=== PATIENT | male | born 1935 | race Caucasian/White ===

== ENCOUNTER → 2017-02-13 | Outpatient (CLI) | payer MEDICARE ==
[~2017-02-13] MED LIST: PROAIR HFA8.5 GM INH; Z.0.ADULT LOW DOSE81 PO; Z.0.LOVASTATIN40 MG PO; Z.1.HYDROCHLOROTH12. PO
--- NOTE | 2017-02-22 04:27 | Pulmonary Function Test ---
DATE OF STUDY: February 13, 2017 SPIROMETRY: Spirometry demonstrates evidence of very severe obstruction noting decreased FEV1 of 0.65 L, 21% predicted with decreased FVC of 1.8 L, 39% predicted in setting of decreased FEV1 over FVC ratio. Flow volume loop demonstrates scooped out expiratory limb and normal expiratory limb often seen in emphysema. Decreased FVC may signal concomitant restriction versus hyperinflation. SUMMARY: Very severe obstruction. Decreased FVC may signify concomitant restriction versus hyperinflation. Clinical correlation is recommended and lung volumes may be performed if clinically indicated. Job#: [id number] [facility]
== END ==
LOC: RESP 14:13
PROVIDERS: ATTEND Internal Medicine Critical Care Medicine
DX: J44.9 Chronic obstructive pulmonary disease, unspecified (principal); G47.36 Sleep related hypoventilation in conditions classified elsewhere; Z77.090 Contact with and (suspected) exposure to asbestos; Z87.891 Personal history of nicotine dependence
CPT/HCPCS: 94010

== ENCOUNTER 2017-03-15 16:38 | Inpatient (IN) | payer MEDICARE ==
[~2017-03-15] VITALS: Ht 182.9 cm; Wt 83.9 kg
[2017-03-15] MEDS ORDERED: MAGNESIUM SULFATE 2GM/50ML 50 ML IV STA (16:45)
[2017-03-15] MEDS ORDERED: IPRATROPIUM BROMIDE 0.02% 2.5 ML NEB NEB STA (16:45)
[2017-03-15] MEDS ORDERED: ASPIRIN 81 MG CHEW TAB PO ONE ×3 (16:45→19:30)
[2017-03-15] MEDS ORDERED: LEVALBUTEROL HCL SOLN NEBU 1.25 MG/3 ML NEB INH SCH (17:00)
[2017-03-15 17:01] LABS: BASOPHILS % 0.2 % (0.0-1.0); EOSINOPHILS % 0.1 % (0.0-6.0); LYMPHOCYTES # (AUTO) 2.1 (1.0-3.2); LYMPHOCYTES % 17.7 % (18.0-39.1); MEAN CORPUSCULAR HEMOGLOBIN 30.5 pg (28-32); MEAN CORPUSCULAR HGB CONC 33.3 g/dL (31-35); MEAN CORPUSCULAR VOLUME 91.5 fL (81-99); MONOCYTES # (AUTO) 0.9 (0.2-0.8); MONOCYTES % 7.8 % (4.4-11.3); NEUTROPHILS # (AUTO) 8.6 (2.1-6.9); NEUTROPHILS % 73.9 % (38.7-80.0); PLATELET COUNT 206 x10e3/uL (140-360); RED CELL DISTRIBUTION WIDTH 13.5 % (11.7-14.4)
[2017-03-15 17:04] LABS: INR 0.94
[2017-03-15 17:05] LABS: PARTIAL THROMBOPLASTIN TIME 24.2 seconds (23.8-35.5)
[2017-03-15 17:14] LABS: ALBUMIN 3.6 g/dL (3.5-5.0); ALBUMIN/GLOBULIN RATIO 0.8 (0.8-2.0); ANION GAP 16.3 mmol/L (8-16); CALCIUM 9.4 mg/dL (8.4-10.2); CREATININE, SERUM 1.18 mg/dL (0.72-1.25); POTASSIUM 4.3 mmol/L (3.5-5.1)
[2017-03-15] MEDS ORDERED: ALBUTEROL/IPRATROPIUM 3 ML NEB NEB ONE (17:15)
[2017-03-15] MEDS ORDERED: ALBUTEROL SULF 0.083% NEB SOLN 3 ML NEB NEB ONE (17:15)
[2017-03-15 17:21] LABS: CREATINE KINASE MB 3.4 ng/mL (0.00-5.00); TROPONIN I 0.014 ng/mL (0-0.300)
[2017-03-15 17:33] LABS: B-TYPE NATRIURETIC PEPTIDE2 77.2 pg/mL (0-100)
[2017-03-15 17:35] LABS: ABG PH 7.38 (7.31-7.41)
[2017-03-15] MEDS ORDERED: PIPERACILLIN/TAZO 4.5 GM 100 ML IV STA (18:02)
--- NOTE | 2017-03-15 18:02 | Diagnostic Imaging Report ---
PROCEDURE: A single AP view of the chest. COMPARISON: Patients [facility], , CHEST 2 VIEWS, 08/10/2016, 11:46. INDICATIONS: Not provided. FINDINGS: Lines/tubes: None. Lungs: Stable hyperinflated lungs, with increased lucency in the upper lobes, consistent with COPD changes. No consolidation or pulmonary edema. Pleura: Minimal blunting of the right lateral costophrenic sulcus, which may reflect pleural thickening versus small volume pleural effusion. Heart and mediastinum: Stable cardiac silhouette. Enlarged bilateral pulmonary arteries. Atherosclerotic calcification of the aortic arch. Bones: No acute bony abnormality. IMPRESSION: 1. COPD changes. No consolidation or pulmonary edema. 2. Enlarged bilateral pulmonary arteries. 3. Right costophrenic angle pleural thickening versus small pleural effusion. Severino Davis M.D. Dictated by: Severino Davis M.D. on 03/15/2017 at 18:10 Electronically approved by: Severino Davis M.D. on 03/15/2017 at 18:10
[2017-03-15] MEDS ORDERED: VANCOMYCIN 1GM/NS 250 ML 250 ML IV ONE (18:30)
[2017-03-15] MEDS ORDERED: METOPROLOL TART25 MG PO (18:40)
[2017-03-15] MEDS ORDERED: PREDNISONE5 MG PO (18:40)
[2017-03-15] MEDS ORDERED: LEVOFLOXACIN500 MG PO (18:40)
[2017-03-15] MEDS ORDERED: SODIUM CHLORIDE FLUSH 10 ML SYR INJ PRN (18:45)
[2017-03-15] MEDS ORDERED: SALMETEROL/FLUTICASONE 100/50 INH SCH (19:00)
[2017-03-15] MEDS: VANCOMYCIN 1GM/NS 250 ML 250 ML IV SCH (20:54)
[2017-03-15] MEDS: PIPERACILLIN/TAZO 4.5 GM 100 ML IV SCH (20:54)
[2017-03-15 21:59] LABS: BILIRUBIN,URINE NEGATIVE (NEGATIVE); CLARITY,URINE CLEAR (CLEAR); COLOR,URINE YELLOW (YELLOW); KETONES,URINE TRACE (NEGATIVE); LEUKOCYTE ESTERASE ,URINE NEGATIVE (NEGATIVE); NITRITE,URINE NEGATIVE (NEGATIVE); URINE UROBILINOGEN 0.2 mg/dL (0.2 - 1)
[2017-03-15 22:00] LABS: PROTEIN,URINE DIPSTICK 2+ (NEGATIVE)
[2017-03-15 22:06] LABS: MUCUS,URINE MODERATE (RARE); RBC,URINE 0-5 /HPF (0-5); WBC,URINE (MAN) 0-5 /HPF (0-5)
[2017-03-15] MEDS: LEVALBUTEROL HCL SOLN NEBU 1.25 MG/3 ML NEB INH PRN (22:50)
[2017-03-16] MEDS: PIPERACILLIN/TAZO 4.5 GM 100 ML IV SCH ×4 (00:38→18:25)
[2017-03-16 01:44] LABS: CREATINE KINASE MB 4.2 ng/mL (0.00-5.00); TROPONIN I 0.231 ng/mL (0-0.300)
[2017-03-16 05:38] LABS: BASOPHILS % 0.2 % (0.0-1.0); LYMPHOCYTES # (AUTO) 0.7 (1.0-3.2); LYMPHOCYTES % 11.3 % (18.0-39.1); MEAN CORPUSCULAR HGB CONC 33.3 g/dL (31-35); MEAN CORPUSCULAR VOLUME 90.1 fL (81-99); MONOCYTES # (AUTO) 0.4 (0.2-0.8); MONOCYTES % 5.9 % (4.4-11.3); NEUTROPHILS # (AUTO) 5.3 (2.1-6.9); NEUTROPHILS % 82.3 % (38.7-80.0); PLATELET COUNT 187 x10e3/uL (140-360); RED BLOOD COUNT 5.33 x10e6/uL (4.3-5.7); RED CELL DISTRIBUTION WIDTH 13.7 % (11.7-14.4)
[2017-03-16 05:59] LABS: ALANINE AMINOTRANSFERASE 44 IU/L (0-55); ALBUMIN/GLOBULIN RATIO 0.8 (0.8-2.0); ALKALINE PHOSPHATASE 56 IU/L (40-150); ANION GAP 13.8 mmol/L (8-16); BLOOD UREA NITROGEN 23 mg/dL (7-26); BUN/CREATININE RATIO 23 (6-25); CALCIUM 8.9 mg/dL (8.4-10.2); CARBON DIOXIDE 28 mmol/L (22-29); CHLORIDE 102 mmol/L (98-107); EST GLOMERULAR FILTRATION RATE > 60 ML/MIN (60-); GLUCOSE 177 mg/dL (74-118); POTASSIUM 4.8 mmol/L (3.5-5.1); SODIUM 139 mmol/L (136-145)
[2017-03-16] MEDS: VANCOMYCIN 1GM/NS 250 ML 250 ML IV SCH (07:00)
[2017-03-16] MEDS: FAMOTIDINE 20 MG TAB PO SCH ×2 (07:30→16:05)
[2017-03-16] MEDS: OSELTAMIVIR PHOSPHATE 75 MG CAP PO SCH ×2 (07:30→20:30)
[2017-03-16] MEDS: ENOXAPARIN SOD INJ 40 MG/0.4 ML SYR SC SCH (07:30)
[2017-03-16] MEDS: METHYLPREDNISOLONE SOD SUCC 40 MG/ML VIAL IV SCH ×2 (07:55→20:30)
[2017-03-16] MEDS: METOPROLOL TARTRATE 25 MG TAB PO SCH (08:33)
[2017-03-16] MEDS: ASPIRIN 81 MG ENTERIC COATED PO SCH (08:33)
[2017-03-16] MEDS: HYDROCHLOROTHIAZIDE 25 MG TAB PO SCH (08:34)
[2017-03-16] MEDS: BENZONATATE 100 MG CAP PO SCH ×3 (08:34→20:30)
[2017-03-16] MEDS: LORATADINE 10 MG TAB PO SCH (08:34)
--- NOTE | 2017-03-16 08:46 | History and Physical ---
PRIMARY CARE PHYSICIAN: Dr. Edgar Bautista. CHIEF COMPLAINT: Shortness of breath. HISTORY OF PRESENT ILLNESS: This is an 81-year-old man with a history of COPD, now developing worsening shortness of breath and cough. This has been ongoing for about a week. He went to his primary care doctor, stating that he had not been feeling well. His chest x-ray showed signs of pneumonia. He was started on Levaquin and prednisone. Now at home yesterday patient had worsening shortness of breath and cough, attempted to reach to get his inhaler but got so fatigued that he was unable to reach. Therefore, he was brought to the hospital by his . Here he was found to have positive flu, and he has been started on BiPAP support for respiratory failure. He is admitted for further evaluation and management. PAST MEDICAL HISTORY: COPD, hypertension, cigarette abuse, recent pneumonia, hyperlipidemia. PAST SURGICAL HISTORY: None. ALLERGIES: PER THE ELECTRONIC MEDICAL RECORDS. FAMILY HISTORY/SOCIAL HISTORY: Patient is . He has 3 children. No alcohol. He quit cigarettes 35 years ago. MEDICATIONS: Per the electronic medical records. Reviewed. REVIEW OF SYSTEMS: Denies any dizziness, chest pain. VITAL SIGNS: Have been reviewed. PHYSICAL EXAMINATION GENERAL APPEARANCE: A tired-appearing man resting in bed. HEENT: Anicteric. He has a BiPAP mask in place. CARDIOVASCULAR: Normal S1/S2. LUNGS: Markedly reduced breath sounds throughout. Diminished throughout all lung roger. No wheezing. ABDOMEN: Soft, nontender, nondistended. EXTREMITIES: No edema. SKIN: Dry. PSYCHIATRIC: Normal affect. LABS: Reviewed. ASSESSMENT AND PLAN: This is an 81-year-old man. 1. Acute exacerbation of chronic obstructive pulmonary disease/acute respiratory failure. BiPAP support on board. Patient is on IV Zosyn and IV vancomycin. He is also getting oseltamivir for the flu. Will discontinue Advair and put him on Solu-Medrol with nebs. Will also add loratadine, antihistamine and antitussive medications. 2. Acute kidney injury. Will monitor closely. This is mild. 3. Right pleural effusion which appears to be small. Will monitor. May need to be diuresed. 4. Hypertension. Restart home medication of metoprolol tartrate. 5. Positive flu. Will use Tamiflu for 5 days. 6. Prophylaxis. Lovenox and Pepcid. 7. Disposition. Pulmonary consultation. Add steroids and continue broad-spectrum antibiotics. Follow up cultures. Obtain sputum culture as well. Job#: [id number] EV
[2017-03-16 10:54] LABS: CREATINE KINASE MB 3.7 ng/mL (0.00-5.00); TROPONIN I 0.134 ng/mL (0-0.300)
[2017-03-16 10:55] VITALS: BP 155/90
[2017-03-16] MEDS ORDERED: SODIUM CHLORIDE 0.9% 250ML 250 ML ONE (11:24)
[2017-03-16 12:00] VITALS: BP_SYST 151; BP_SYST 156; BP_DIAS 93; BP_DIAS 94
[2017-03-16] MEDS ORDERED: Anoro Ellipta IH (14:17)
[2017-03-16] MEDS: IPRATROPIUM BROMIDE 0.02% 2.5 ML NEB NEB SCH ×3 (15:00→23:25)
[2017-03-16] MEDS: GUAIFENESIN 600MG/DEXTROMETHORPHAN 30MG TABSR PO SCH ×2 (15:00→23:28)
[2017-03-16 16:05] VITALS: BP 151/93
[2017-03-16 16:13] VITALS: BP 154/89
--- NOTE | 2017-03-16 17:00 | Consultation ---
DATE OF CONSULTATION: March 16, 2017 PULMONARY MEDICINE CONSULT PRIMARY CARE DOCTOR: Dr. Edgar Bautista HISTORY: Mr. Osman is a pleasant 81-year-old gentleman with acute respiratory failure. Patient with known COPD. He is chronically on medicines for his COPD, including Symbicort although we tried to change it to a different medicine recently, which is not approved. He performs pulmonary rehab. Was in his usual state of health until 1 week prior to admission. Patient with fever to 101 degrees Fahrenheit. Some increased congestion. Mild shortness of breath. Small cough although was not too excessive. Patient not clear to have any sick contacts, although in recent few days his son was very sick. He had worsening shortness of breath. He went to his primary care doctor where he was treated for pneumonia. Patient failed to improve so he came to [facility]. He was given BiPAP for rescue and was breathing very hard at 24. He is admitted to the hospital. Influenza flu assay was positive. PAST MEDICAL HISTORY: COPD, hypertension, hyperlipidemia. MEDICATIONS: List reviewed per electronic record. Currently, in the hospital he is on Zosyn, vancomycin, Tamiflu among other medicines. ALLERGIES: NO KNOWN DRUG ALLERGIES. SOCIAL HISTORY: No drinking. No drugs. Former smoker and he quit 35 years ago. Is . FAMILY HISTORY: Noncontributory to this condition. REVIEW OF SYSTEMS: Cannot get as he is on respiratory support device. PHYSICAL EXAMINATION VITALS: Afebrile. Vital signs noted per electronic record. GENERAL: No distress when he is on BiPAP with only mild tachypnea. HEENT: Normocephalic and atraumatic. NECK: Supple. Throat midline. LUNGS: Bilateral air entry. Few rare rhonchi. Few rare wheezes. CARDIOVASCULAR: S1 and S2. No murmurs, rubs or gallops. ABDOMEN: Soft and nontender. EXTREMITIES: No clubbing. No cyanosis. No edema. INTEGUMENT: No rash. No purpura. LABS: Potassium 4.8, BUN 22, creatinine 1. White count 6.5, hematocrit 48. Chest x-ray with basilar atelectasis versus infiltrate. IMPRESSION AND PLAN 1. Influenza, acute. 2. Treat for pneumonia. 3. Chronic obstructive pulmonary disease with exacerbation. 4. Acute respiratory failure: BiPAP salvage attempt. 5. Former smoker. 6. Hypertension. 7. Hyperlipidemia. At this time, will continue current treatment. Patient will have continued steroids. Continue BiPAP for salvage. Will try to avoid intubation. Bronchodilators will be given. Tamiflu will be given empirically, although he may be outside of the 48-hour window after symptoms onset. Continue other supportive treatment. Will follow along closely. Thank you very much, Dr. Kaiser and Dr. Bautista, for allowing me the chance to participate in the care of Mr. Osman. Do not hesitate to contact me if I can help in any way. Job#: [id number] SUN
[2017-03-16 17:19] VITALS: BP 154/89
[2017-03-16 20:00] VITALS: BP 158/95
[2017-03-16] MEDS: LEVALBUTEROL HCL SOLN NEBU 1.25 MG/3 ML NEB INH PRN (20:25)
[2017-03-16] MEDS: SIMVASTATIN 20 MG TAB PO SCH (20:30)
[2017-03-16] MEDS: VANCOMYCIN 750MG/NS 150ML IVPB 150 ML IV SCH (23:22)
[2017-03-17] VITALS (7 sets, daily range): BP systolic 121–168; BP diastolic 81–111
[2017-03-17] MEDS: PIPERACILLIN/TAZO 4.5 GM 100 ML IV SCH ×4 (00:11→18:43)
[2017-03-17] MEDS: IPRATROPIUM BROMIDE 0.02% 2.5 ML NEB NEB SCH ×6 (03:21→23:05)
[2017-03-17] MEDS: GUAIFENESIN 600MG/DEXTROMETHORPHAN 30MG TABSR PO SCH ×3 (05:17→21:30)
[2017-03-17] MEDS: OSELTAMIVIR PHOSPHATE 75 MG CAP PO SCH ×2 (08:18→20:30)
[2017-03-17] MEDS: ASPIRIN 81 MG ENTERIC COATED PO SCH (08:18)
[2017-03-17] MEDS: METHYLPREDNISOLONE SOD SUCC 40 MG/ML VIAL IV SCH ×2 (08:18→20:21)
[2017-03-17] MEDS: FAMOTIDINE 20 MG TAB PO SCH ×2 (08:18→16:23)
[2017-03-17] MEDS: BENZONATATE 100 MG CAP PO SCH ×3 (08:18→20:30)
[2017-03-17] MEDS: HYDROCHLOROTHIAZIDE 25 MG TAB PO SCH (08:18)
[2017-03-17] MEDS: METOPROLOL TARTRATE 25 MG TAB PO SCH (08:18)
[2017-03-17] MEDS: LORATADINE 10 MG TAB PO SCH (08:18)
--- NOTE | 2017-03-17 11:19 | Progress Note ---
DATE: March 17, 2017 MEDICINE PROGRESS NOTE TIME OF SERVICE: 10:30 a.m. SUBJECTIVE: Overnight, feeling a little better. REVIEW OF SYSTEMS: Denies any dizziness. VITAL SIGNS: Reviewed. PHYSICAL EXAMINATION GENERAL APPEARANCE: A tired-appearing man resting in bed. HEENT: Anicteric. A BiPAP mask to the side. CARDIOVASCULAR: Normal S1/S2. LUNGS: Markedly reduced breath sounds throughout, diminished throughout all lung roger. No wheezing. ABDOMEN: Soft, nontender, nondistended. EXTREMITIES: No edema. SKIN: Dry. PSYCHIATRIC: Normal affect. LABS: Reviewed. MEDICATIONS: Reviewed. ASSESSMENT: An 81-year-old man. 1. Acute exacerbation of chronic obstructive pulmonary disease/acute respiratory failure. 2. Acute kidney injury. 3. Right pleural effusion. 4. Hypertension. 5. Positive flu. PLAN 1. Continue BiPAP support at night. Continue oxygen nasal cannula by day. 2. Continue IV antibiotics of Zosyn and vancomycin, as well as Tamiflu. 3. Follow up renal function. 4. Monitor fluid status. 5. Blood pressure control. 6. Leukocytosis resolved. 7. Acute kidney injury is improving. 8. Continue antitussive medication, loratadine and methylprednisolone. 9. Continue Pepcid and Lovenox prophylactically. Job#: [id number] EV
[2017-03-17] MEDS: VANCOMYCIN 750MG/NS 150ML IVPB 150 ML IV SCH ×2 (11:32→23:50)
--- NOTE | 2017-03-17 14:57 | Progress Note ---
DATE: March 17, 2017 PULMONARY MEDICINE PROGRESS NOTE SUBJECTIVE: Mr. Osman was seen and examined at bedside. He has some small improvement. He has to go back on BiPAP last night, but we are able to wean him off as of this morning. As of yet, he has not gone back on the BiPAP today. Patient currently with 4 liters per minute by nasal cannula, 94% oxygen saturation. Blood pressure mildly high in 150s. Patient otherwise with small expectoration of phlegm. REVIEW OF SYSTEMS: No headache, no double vision. OBJECTIVE VITAL SIGNS: Afebrile. Vital signs noted per electronic record. GENERAL: No distress, but he is slightly with increased work of breathing, mildly pale. HEENT: Normocephalic, atraumatic. NECK: Supple. Throat midline. LUNGS: Bilateral air entry, few rhonchi. CARDIOVASCULAR: S1 and S2. No murmurs, rubs, or gallops. ABDOMEN: Soft and nontender. EXTREMITIES. No clubbing, no cyanosis, there is no edema. INTEGUMENT: No rash. No purpura. LABS: No new updates for today. IMPRESSION 1. Pneumonia. 2. Influenza, acute. 3. Chronic obstructive pulmonary disease with exacerbation. 4. Weakness. 5. Hypoxemia. PLAN: Continue to wean off oxygen. Stop mobilize him and I will order physical therapy. Wean of BiPAP completely if possible. Acute respiratory failure is hopefully improving. Continue bronchodilators and steroids. Continue Tamiflu and antibiotics. Job#: [id number] KYLIE
[2017-03-17] MEDS: ENOXAPARIN SOD INJ 40 MG/0.4 ML SYR SC SCH (16:23)
[2017-03-17] MEDS: LEVALBUTEROL HCL SOLN NEBU 1.25 MG/3 ML NEB INH PRN (19:30)
[2017-03-17] MEDS: METOPROLOL TARTRATE 50 MG TAB PO SCH (20:30)
[2017-03-17] MEDS: SIMVASTATIN 20 MG TAB PO SCH (20:30)
[2017-03-18] VITALS (8 sets, daily range): BP systolic 134–178; BP diastolic 78–103
[2017-03-18] MEDS: PIPERACILLIN/TAZO 4.5 GM 100 ML IV SCH ×4 (00:50→18:15)
[2017-03-18] MEDS: IPRATROPIUM BROMIDE 0.02% 2.5 ML NEB NEB SCH ×6 (03:20→23:15)
[2017-03-18] MEDS: GUAIFENESIN 600MG/DEXTROMETHORPHAN 30MG TABSR PO SCH ×3 (05:20→22:14)
[2017-03-18 06:21] LABS: BASOPHILS % 0.1 % (0.0-1.0); HEMATOCRIT 46.4 % (38.2-49.6); HEMOGLOBIN 15.6 g/dL (14.0-18.0); LYMPHOCYTES # (AUTO) 0.5 (1.0-3.2); LYMPHOCYTES % 4.2 % (18.0-39.1); MEAN CORPUSCULAR HEMOGLOBIN 29.9 pg (28-32); MEAN CORPUSCULAR HGB CONC 33.6 g/dL (31-35); MEAN CORPUSCULAR VOLUME 88.9 fL (81-99); MONOCYTES # (AUTO) 0.5 (0.2-0.8); MONOCYTES % 3.9 % (4.4-11.3); NEUTROPHILS # (AUTO) 10.9 (2.1-6.9); NEUTROPHILS % 91.4 % (38.7-80.0); PLATELET COUNT 198 x10e3/uL (140-360); RED BLOOD COUNT 5.22 x10e6/uL (4.3-5.7); RED CELL DISTRIBUTION WIDTH 13.3 % (11.7-14.4)
[2017-03-18 06:48] LABS: ANION GAP 11.2 mmol/L (8-16); BLOOD UREA NITROGEN 23 mg/dL (7-26); BUN/CREATININE RATIO 24 (6-25); CALCIUM 8.9 mg/dL (8.4-10.2); CARBON DIOXIDE 31 mmol/L (22-29); CHLORIDE 99 mmol/L (98-107); CREATININE, SERUM 0.95 mg/dL (0.72-1.25); EST GLOMERULAR FILTRATION RATE > 60 ML/MIN (60-); GLUCOSE 152 mg/dL (74-118); MAGNESIUM 1.9 MG/DL (1.3-2.1); POTASSIUM 4.2 mmol/L (3.5-5.1); SODIUM 137 mmol/L (136-145)
--- NOTE | 2017-03-18 07:03 | Diagnostic Imaging Report ---
EXAMINATION: CHEST SINGLE (PORTABLE) INDICATION: Pneumonia. COMPARISON: 03/15/2017 FINDINGS: TUBES and LINES: None. LUNGS: The lungs are hyperinflated. Bibasilar atelectasis There is no evidence of pneumonia or pulmonary edema. PLEURA: No pleural effusion or pneumothorax. HEART AND MEDIASTINUM: The cardiomediastinal silhouette is unremarkable. There are atherosclerotic calcifications within the aorta. BONES AND SOFT TISSUES: No acute osseous lesion. Soft tissues are unremarkable. UPPER ABDOMEN: No free air under the diaphragm. IMPRESSION: Changes related to COPD. No evidence of consolidation. Signed by: Dr. Jamir Beckman M.D. on 03/18/2017 6:59 AM
--- NOTE | 2017-03-18 07:38 | Progress Note ---
DATE: March 18, 2017 TIME: 6:40 a.m. OVERNIGHT: Less short of breath, but still have O2 desats in the 80s with ambulation. REVIEW OF SYSTEMS: Denies any chest pain. PHYSICAL EXAMINATION VITAL SIGNS: Reviewed. GENERAL: A tired-appearing man resting in bed. HEENT: Anicteric. CARDIOVASCULAR: Normal S1 and S2. LUNGS: Reduced breath sounds throughout. ABDOMEN: Soft, nontender and nondistended. EXTREMITIES: No edema. SKIN: Dry. PSYCHIATRIC: Normal affect. LABS: Reviewed. MEDICATIONS: Reviewed. ASSESSMENT: An 81-year-old man with: 1. Acute exacerbation of chronic obstructive pulmonary disease/respiratory failure. 2. Acute kidney injury. 3. Right pleural effusion. 4. Hypertension. 5. Positive flu. 6. Physical deconditioned. PLAN 1. Continue oxygen support. Still having some desats with ambulation. Will get physical therapy on board. 2. Continue IV antibiotics of vancomycin, Zosyn and Tamiflu. 3. Acute kidney injury has resolved. 4. Vancomycin trough 7.7. 5. Other cultures have remained negative. 6. Physical therapy for physical deconditioning. Job#: [id number] DE
[2017-03-18] MEDS: FAMOTIDINE 20 MG TAB PO SCH ×2 (09:30→17:00)
[2017-03-18] MEDS: METHYLPREDNISOLONE SOD SUCC 40 MG/ML VIAL IV SCH ×2 (09:30→22:13)
[2017-03-18] MEDS: LORATADINE 10 MG TAB PO SCH (09:30)
[2017-03-18] MEDS: OSELTAMIVIR PHOSPHATE 75 MG CAP PO SCH ×2 (09:30→22:14)
[2017-03-18] MEDS: ASPIRIN 81 MG ENTERIC COATED PO SCH (09:30)
[2017-03-18] MEDS: BENZONATATE 100 MG CAP PO SCH ×3 (09:30→22:14)
[2017-03-18] MEDS: HYDROCHLOROTHIAZIDE 25 MG TAB PO SCH (09:30)
[2017-03-18] MEDS: METOPROLOL TARTRATE 50 MG TAB PO SCH (09:30)
[2017-03-18] MEDS: VANCOMYCIN 750MG/NS 150ML IVPB 150 ML IV SCH ×2 (11:30→23:41)
[2017-03-18] MEDS ORDERED: SODIUM CHLORIDE 0.9% 250ML 250 ML ONE (12:50)
--- NOTE | 2017-03-18 14:43 | Progress Note ---
DATE: March 18, 2017 PULMONARY MEDICINE PROGRESS NOTE SUBJECTIVE: Mr. Osman was seen and examined at bedside. He continues to have a lot of dyspnea. He was able to walk to the restroom. He also walked across the room to the door. He, however, had a long time until he was able to recover from his shortness of breath. The patient had 4.5 L per minute of oxygen with 96% oxygen saturation. Blood cultures only 1 out of 2 are positive for now. Chest x-ray once again was done and shows slight improvement. REVIEW OF SYSTEMS: No nosebleed. No headache. OBJECTIVE VITAL SIGNS: Afebrile. Vital signs noted per electronic record. GENERAL: No acute distress, alert and calm, but there is increased work of breathing, mild to moderate. HEENT: Normocephalic, atraumatic. NECK: Supple. Throat midline. LUNGS: A few rhonchi, decreased air entry. CARDIOVASCULAR: S1 and S2. No murmurs, rubs, or gallops. ABDOMEN: Soft and nontender. EXTREMITIES. No clubbing. No cyanosis. There is no edema. INTEGUMENT: No rash. No purpura. LABS: BUN 23, 0.9 creatinine, 12 white count, 46 hematocrit. IMPRESSION 1. Chronic obstructive pulmonary disease with exacerbation. 2. Acute respiratory failure, improving slowly. 3. Weakness. 4. Acute pneumonia. PLAN: Continue IV antibiotics. Vancomycin trough done and acceptable. Continue aggressive PT and OT. Given instructions for therapy. Tamiflu continue and finish this course. Continue steroids IV given his extensive shortness of breath for now, but we will consider going to prednisone tomorrow. Job#: [id number]
[2017-03-18] MEDS ORDERED: METOPROLOL TARTRATE 50 MG TAB PO SCH (17:00)
[2017-03-18] MEDS: ENOXAPARIN SOD INJ 40 MG/0.4 ML SYR SC SCH (17:00)
[2017-03-18] MEDS ORDERED: METOPROLOL TARTRATE 50 MG TAB PO ONE (18:45)
[2017-03-18] MEDS ORDERED: HYDRALAZINE HCL 25 MG TAB PO SCH (21:00)
[2017-03-18] MEDS: SIMVASTATIN 20 MG TAB PO SCH (22:14)
[2017-03-19] VITALS (12 sets, daily range): BP systolic 121–178; BP diastolic 74–129
[2017-03-19] MEDS: PIPERACILLIN/TAZO 4.5 GM 100 ML IV SCH ×5 (01:14→23:14)
[2017-03-19] MEDS: IPRATROPIUM BROMIDE 0.02% 2.5 ML NEB NEB SCH ×5 (03:55→19:15)
[2017-03-19] MEDS: GUAIFENESIN 600MG/DEXTROMETHORPHAN 30MG TABSR PO SCH ×3 (05:22→21:47)
[2017-03-19] MEDS: METOPROLOL TARTRATE 50 MG TAB PO SCH ×2 (07:20→21:04)
[2017-03-19] MEDS: HYDROCHLOROTHIAZIDE 25 MG TAB PO SCH (07:20)
--- NOTE | 2017-03-19 08:32 | Progress Note ---
DATE: March 19, 2017 TIME: 6:30 a.m. OVERNIGHT: Less short of breath. REVIEW OF SYSTEMS: Denies any chest pain. VITAL SIGNS: Reviewed. PHYSICAL EXAMINATION GENERAL: A tired-appearing man resting in bed. HEENT: Anicteric. CARDIOVASCULAR: Normal S1 and S2. LUNGS: Decreased breath sounds throughout. ABDOMEN: Soft, nontender. EXTREMITIES: No edema. SKIN: Dry. PSYCHIATRIC: Flat affect. LABS: Reviewed. MEDICATIONS: Reviewed. ASSESSMENT: An 81-year-old man. 1. Acute exacerbation of chronic obstructive pulmonary disease/respiratory failure. 2. Acute kidney injury. 3. Right pleural effusion. 4. Hypertension. 5. Positive influenza. 6. Physical deconditioning. PLAN 1. Continue oxygen support. Obtain ambulatory O2 sat on room air. 2. Physical therapy. The patient is quite deconditioned. Will get skilled facility evaluation. 3. Continue IV antibiotics and Tamiflu. 4. Last vancomycin trough was 9.9 yesterday. 5. All other cultures have remained negative. 6. SNF evaluation. Job#: [id number]
[2017-03-19] MEDS: BENZONATATE 100 MG CAP PO SCH ×3 (09:00→21:00)
[2017-03-19] MEDS: LORATADINE 10 MG TAB PO SCH (09:00)
[2017-03-19] MEDS: OSELTAMIVIR PHOSPHATE 75 MG CAP PO SCH ×2 (09:00→21:04)
[2017-03-19] MEDS: ASPIRIN 81 MG ENTERIC COATED PO SCH (09:00)
[2017-03-19] MEDS ORDERED: NIFEDIPINE CR 30 MG TAB PO SCH (09:00)
[2017-03-19] MEDS: FAMOTIDINE 20 MG TAB PO SCH (09:00)
--- NOTE | 2017-03-19 13:39 | Progress Note ---
DATE: March 19, 2017 PULMONARY MEDICINE PROGRESS NOTE SUBJECTIVE: Mr. Osman was seen and examined at bedside. He continues to have some shortness of breath. Blood pressure has been concerning to him as it is a little bit high sometimes to 160s to 170s at times. The patient did not get therapy yet as it was deferred due to the patient's symptoms. Had 1.6 L in, 1.1 L out. Bowel movement achieved. REVIEW OF SYSTEMS: No nosebleed. No scratch line. OBJECTIVE VITAL SIGNS: Afebrile. Vital signs noted per electronic record. GENERAL: No acute distress, but mild increased work of breathing, even sitting at rest. HEENT: Normocephalic, atraumatic. NECK: Supple. Throat midline. LUNGS: Bilateral air entry, a few rhonchi. CARDIOVASCULAR: S1 and S2. No murmurs, rubs, or gallops. ABDOMEN: Soft and nontender. EXTREMITIES. No clubbing. No cyanosis. There is no edema. INTEGUMENT: No rash. No purpura. IMPRESSION 1. Acute influenza. 2. Pneumonia. 3. Chronic obstructive pulmonary disease with exacerbation. 4. Hypertension. PLAN: Continue to follow up. We will wean down the steroids slightly. Continue bronchodilators. PT is very important. This was reinforced to him. He needs to recover quickly so that he does not lose his energy. Cardiac status noted, and medicines are being increased. Will follow along closely. Job#: [id number]
[2017-03-19] MEDS ORDERED: HYDRALAZINE HCL 25 MG TAB PO SCH (14:00)
[2017-03-19] MEDS ORDERED: DIPHENHYDRAMINE HCL INJ 1 ML ONE (15:55)
[2017-03-19] MEDS ORDERED: SODIUM CHLORIDE 0.9% 1000ML 1,000 ML ONE (15:55)
[2017-03-19] MEDS ORDERED: METHYLPREDNISOLONE SOD SUCC 40 MG/ML VIAL IV ONE (16:00)
[2017-03-19] MEDS ORDERED: DIPHENHYDRAMINE HCL INJ 50 MG/ML VIAL IV ONE (16:00)
[2017-03-19] MEDS: FAMOTIDINE 20 MG/2 ML VIAL IV SCH (17:11)
[2017-03-19] MEDS: ENOXAPARIN SOD INJ 40 MG/0.4 ML SYR SC SCH (17:37)
[2017-03-19] MEDS ORDERED: METHYLPREDNISOLONE SOD SUCC 40 MG/ML VIAL IV SCH (21:00)
[2017-03-19] MEDS: SIMVASTATIN 20 MG TAB PO SCH (21:05)
[2017-03-19] MEDS: METRONIDAZOLE 250 MG TAB PO SCH (21:47)
[2017-03-20] VITALS (10 sets, daily range): BP systolic 114–170; BP diastolic 64–101
[2017-03-20] MEDS: IPRATROPIUM BROMIDE 0.02% 2.5 ML NEB NEB SCH ×7 (00:15→20:30)
[2017-03-20] MEDS: METRONIDAZOLE 250 MG TAB PO SCH ×3 (05:21→21:26)
[2017-03-20] MEDS: PIPERACILLIN/TAZO 4.5 GM 100 ML IV SCH ×3 (05:21→18:39)
[2017-03-20] MEDS: GUAIFENESIN 600MG/DEXTROMETHORPHAN 30MG TABSR PO SCH ×3 (05:21→21:26)
[2017-03-20 06:50] LABS: BASOPHILS % 0.2 % (0.0-1.0); HEMATOCRIT 50.1 % (38.2-49.6); HEMOGLOBIN 17.1 g/dL (14.0-18.0); LYMPHOCYTES # (AUTO) 0.5 (1.0-3.2); LYMPHOCYTES % 5.6 % (18.0-39.1); MEAN CORPUSCULAR HEMOGLOBIN 30.2 pg (28-32); MEAN CORPUSCULAR HGB CONC 34.1 g/dL (31-35); MEAN CORPUSCULAR VOLUME 88.5 fL (81-99); MONOCYTES # (AUTO) 0.7 (0.2-0.8); MONOCYTES % 7.5 % (4.4-11.3); NEUTROPHILS % 85.7 % (38.7-80.0); PLATELET COUNT 215 x10e3/uL (140-360); RED BLOOD COUNT 5.66 x10e6/uL (4.3-5.7); RED CELL DISTRIBUTION WIDTH 13.2 % (11.7-14.4)
[2017-03-20] MEDS: FAMOTIDINE 20 MG/2 ML VIAL IV SCH ×2 (08:30→16:40)
[2017-03-20] MEDS: ASPIRIN 81 MG ENTERIC COATED PO SCH (08:30)
[2017-03-20] MEDS: BENZONATATE 100 MG CAP PO SCH ×4 (08:31→21:00)
[2017-03-20] MEDS: OSELTAMIVIR PHOSPHATE 75 MG CAP PO SCH ×2 (08:31→21:25)
[2017-03-20] MEDS: METOPROLOL TARTRATE 50 MG TAB PO SCH ×2 (08:32→21:25)
[2017-03-20] MEDS: HYDROCHLOROTHIAZIDE 25 MG TAB PO SCH (08:33)
[2017-03-20] MEDS: LORATADINE 10 MG TAB PO SCH (08:33)
[2017-03-20] MEDS: METHYLPREDNISOLONE SOD SUCC 40 MG/ML VIAL IV SCH ×2 (08:33→21:25)
[2017-03-20] MEDS: FLUCONAZOLE 100 MG/NS 50 ML 50 ML IV SCH (08:45)
--- NOTE | 2017-03-20 08:56 | Progress Note ---
DATE: March 20, 2017 TIME: 6:30 a.m. OVERNIGHT: Less short of breath. Ambulated yesterday. He had an allergic reaction yesterday and resolved with steroids and Pepcid. REVIEW OF SYSTEMS: Denies any dizziness or chest pain. PHYSICAL EXAMINATION VITAL SIGNS: Reviewed. GENERAL: A tired-appearing man resting in bed. HEENT: Anicteric. CARDIOVASCULAR: Normal S1 and S2. LUNGS: Moderate breath sounds reduced breath sounds throughout, but better aeration. ABDOMEN: Soft, nontender and nondistended. EXTREMITIES: No edema. SKIN: Dry. PSYCHIATRIC: Flat affect. LABS: Reviewed. MEDICATIONS: Reviewed. ASSESSMENT: An 81-year-old man with: 1. Acute exacerbation of chronic obstructive pulmonary disease/respiratory failure. 2. Acute kidney injury. 3. Right pleural effusion. 4. Hypertension. 5. Positive influenza. 6. Physical deconditioning. 7. Allergic type reaction/anaphylactic like reaction. 8. Diarrhea. PLAN 1. Continue oxygen support. 2. Continue physical therapy. 3. Continue antibiotics. 4. SNF evaluation is still ongoing. 5. Cardiology has been consulted. Blood pressure control. 6. Continue Flagyl and follow up stool for C. diff. 7. Continue Lovenox and Pepcid. 8. Complete steroid therapy. 9. Discharge planning. Job#: [id number] SUN
[2017-03-20] MEDS ORDERED: PREDNISONE 20 MG TAB PO SCH (09:00)
[2017-03-20] MEDS ORDERED: ALPRAZOLAM 0.5 MG TAB PO SCH (09:00)
[2017-03-20] MEDS: AMLODIPINE BESYLATE 5 MG TAB PO SCH (10:12)
--- NOTE | 2017-03-20 11:44 | Consultation ---
DATE OF CONSULTATION: March 19, 2017 REASON FOR CONSULTATION: High blood pressure and some bigemini. CONSULTING PHYSICIAN: Dr. Job Thomason. HPI: This is an 82-year-old male that presented with worsening of shortness of breath. According to the patient and at the bedside, he has a history of COPD, started developing worsening of shortness of breath. He was seen by the PCP and was found to have pneumonia and started on some antibiotic and some steroids. They stated that the shortness of breath got worse, that he decided to come into the ER for evaluation. In the emergency room, he was found to have flu positive and was admitted for further evaluation. He denies any chest pain, any palpitation, any dizziness or diaphoresis. EKG showed normal sinus rhythm with some PACs. PAST MEDICAL HISTORY: COPD, hypertension, cigarette abuse, pneumonia, and hyperlipidemia. PAST SURGICAL HISTORY: No surgical surgery. FAMILY HISTORY: Noncontributory. SOCIAL HISTORY: Lives at home with . MEDICATIONS: See med list. ALLERGIES: HE IS NOT ALLERGIC TO ANY MEDICATION. REVIEW OF SYSTEMS: Negative except those mentioned above. PHYSICAL EXAMINATION VITAL SIGNS: Temperature 97, heart rate 79, blood pressure 170/86, respirations 18, oxygen saturation 99% on 2 liters nasal cannula. GENERAL: He is in no distress. HEENT: Mucous membrane moist. NECK: Supple. LUNGS: Bilateral with decreased breath sounds. CARDIOVASCULAR: S1, S2 present. ABDOMEN: Soft. EXTREMITIES: With no edema. NEUROLOGIC: Intact. LABORATORY DATA: Sodium 137, potassium 4.2, chloride 99, CO2 of 31, BUN 23, creatinine 0.95, glucose 152. White blood cell 9.35, hemoglobin 17.1, hematocrit 50.1, platelet 215. PT 13.0, PTT 24.2, and INR 0.94. IMPRESSION 1. Chronic obstructive pulmonary disease exacerbation. 2. Pneumonia. 3. Flu positive. 4. Hypertension. 5. Pleural effusion. 6. Premature atrial contraction. ASSESSMENT AND PLAN: He had an echo done with preliminarily showing 50% to 55%. Blood pressure is still on the higher side. We will go ahead and add some Norvasc and continue other treatment. EKG with some PACs and not symptomatic. Further cardiac workup pending clinical course. Thank you for this consultation. Dictated by: Bart Nance NP Job#: [id number] PAT
[2017-03-20] MEDS ORDERED: SODIUM CHLORIDE 0.9% 250ML 250 ML ONE (12:31)
--- NOTE | 2017-03-20 12:43 | Progress Note ---
DATE: March 20, 2017 PULMONARY MEDICINE PROGRESS NOTE SUBJECTIVE: Mr. Osman was seen and examined at bedside. He continues to have slow progress. He is still very short of breath. He is determined that he does not want to go to shelter facility after discharge. Currently on 5 L per minute of oxygen therapy. Had 1.6 L in and 1.1 L out. He had a bowel movement. REVIEW OF SYSTEMS: No headache. No nosebleed. OBJECTIVE VITAL SIGNS: Afebrile. Vital signs noted per electronic record. GENERAL: No acute distress, alert and calm. HEENT: Normocephalic, atraumatic. No thrush in the mouth. NECK: Supple. Throat midline. LUNGS: Bilateral air entry is much decreased. No wheezes. Rare rhonchi. CARDIOVASCULAR: S1 and S2. No murmurs, rubs, or gallops. ABDOMEN: Soft and nontender. EXTREMITIES. No clubbing. No cyanosis. There is no edema. INTEGUMENT: No rash. No purpura. LABS: 9.3 white count, 15 hematocrit, 215 platelets, 23 BUN, 0.95 creatinine. IMPRESSION 1. Severe influenza. 2. Chronic obstructive pulmonary disease with exacerbation. 3. Pneumonia, improving. 4. Weakness. PLAN: Continue aggressive PT as much as possible. The patient is going to defer shelter and will want home physical therapy until he restarts pulmonary rehab. Continue to mobilize the patient. Continue weaning oxygen. Home oxygen assessment in case the patient goes home soon. Continue antibiotics. Will follow along closely. Okay for Tamiflu to come off at any point now. Job#: [id number]
[2017-03-20] MEDS: ALPRAZOLAM 0.25 MG TAB PO SCH ×2 (15:04→21:00)
[2017-03-20] MEDS: ENOXAPARIN SOD INJ 40 MG/0.4 ML SYR SC SCH (16:40)
[2017-03-20] MEDS: SIMVASTATIN 20 MG TAB PO SCH (21:26)
[2017-03-21] MEDS: PIPERACILLIN/TAZO 4.5 GM 100 ML IV SCH ×3 (01:36→12:12)
[2017-03-21] MEDS: IPRATROPIUM BROMIDE 0.02% 2.5 ML NEB NEB SCH ×3 (02:15→10:37)
[2017-03-21 05:45] VITALS: BP_SYST 116; BP_SYST 118; BP_DIAS 67; BP_DIAS 88
[2017-03-21] MEDS ORDERED: VIBRAMYCIN100 MG PO (06:39)
[2017-03-21] MEDS ORDERED: ALPRAZOLAM0.25 MG PO (06:39)
[2017-03-21] MEDS ORDERED: TESSALON PERLE100 MG PO (06:39)
[2017-03-21] MEDS ORDERED: MUCINEX DM ER1 EACH PO (06:39)
[2017-03-21] MEDS ORDERED: PREDNISONE20 MG PO (06:39)
[2017-03-21] MEDS ORDERED: LORATADINE10 MG PO (06:39)
[2017-03-21] MEDS ORDERED: FLUCONAZOLE100 MG PO (06:39)
[2017-03-21] MEDS: GUAIFENESIN 600MG/DEXTROMETHORPHAN 30MG TABSR PO SCH ×2 (07:06→13:09)
[2017-03-21] MEDS: METRONIDAZOLE 250 MG TAB PO SCH ×2 (07:06→13:09)
[2017-03-21 07:30] VITALS: BP 141/94
[2017-03-21] MEDS ORDERED: NORVASC5 MG PO (07:35)
[2017-03-21] MEDS: FLUCONAZOLE 100 MG/NS 50 ML 50 ML IV SCH (08:25)
[2017-03-21] MEDS: BENZONATATE 100 MG CAP PO SCH (09:00)
[2017-03-21] MEDS: ALPRAZOLAM 0.25 MG TAB PO SCH (09:00)
[2017-03-21] MEDS: LORATADINE 10 MG TAB PO SCH (09:14)
[2017-03-21] MEDS: ASPIRIN 81 MG ENTERIC COATED PO SCH (09:14)
[2017-03-21] MEDS: METHYLPREDNISOLONE SOD SUCC 40 MG/ML VIAL IV SCH (09:14)
[2017-03-21] MEDS: AMLODIPINE BESYLATE 5 MG TAB PO SCH (09:15)
[2017-03-21] MEDS: HYDROCHLOROTHIAZIDE 25 MG TAB PO SCH (09:15)
[2017-03-21] MEDS: OSELTAMIVIR PHOSPHATE 75 MG CAP PO SCH (09:17)
[2017-03-21] MEDS: METOPROLOL TARTRATE 50 MG TAB PO SCH (09:17)
[2017-03-21] MEDS: FAMOTIDINE 20 MG/2 ML VIAL IV SCH (09:27)
[2017-03-21 10:30] VITALS: BP 141/94
[2017-03-21 12:00] VITALS: BP 160/94
--- NOTE | 2017-03-21 13:20 | Progress Note ---
DATE: March 21, 2017 PULMONARY MEDICINE PROGRESS NOTE SUBJECTIVE: Mr. Osman was seen and examined at bedside. He continues with slight improvement. He gets hypoxic on mobilization. Oxygen has been weaned down to 2 L today. He is eating better. He is recovering more easily upon walking. REVIEW OF SYSTEMS: No chest pain. No headache. OBJECTIVE VITAL SIGNS: Afebrile. Vital signs noted per electronic record. GENERAL: No acute distress, alert. Mild increased work of breathing at rest. HEENT: Normocephalic, atraumatic. NECK: Supple. Throat midline. LUNGS: Bilateral air entry. CARDIOVASCULAR: S1 and S2. ABDOMEN: Soft. EXTREMITIES. No edema. INTEGUMENT: No rash. IMPRESSION 1. Acute influenza. 2. Chronic obstructive pulmonary disease with exacerbation. 3. Weakness. 4. Pneumonia. PLAN: Continue antibiotics. The patient will get home oxygen evaluation. Will make sure the patient has daytime oxygen with portability. The patient already has oxygen tank and oxygen concentrator for homebound capacity. Patient is deferring SNF at this time, and the patient likely will want to go home. Discharge planning is being done. Arrange for inhalers for the patient to try to acquire and see what his insurance wants. Job#: [id number]
[2017-03-21 13:58] VITALS: BP 141/87
[2017-03-21] MEDS ORDERED: FAMOTIDINE 20 MG TAB PO SCH (16:30)
[2017-03-21] MEDS ORDERED: PIPERACILLIN/TAZO 4.5 GM 50 ML IV SCH (18:00)
== END 2017-03-21 14:29 | disposition home health service (06) | DRG 193 ==
LOC: ER 16:38 → ERHOLD 18:31 → IMCU 03-16 10:15
PROVIDERS: ADMIT Internal Medicine; ATTEND Internal Medicine
PROC: 5A09357 Assistance with Respiratory Ventilation, Less than 24 Consecutive Hours, Continuous Positive Airway Pressure (ICD-10-PCS; principal; 2017-03-16)
DX: J18.9 Pneumonia, unspecified organism (principal); J96.01 Acute respiratory failure with hypoxia; N17.9 Acute kidney failure, unspecified; J90 Pleural effusion, not elsewhere classified; J44.0 Chronic obstructive pulmonary disease with (acute) lower respiratory infection; J44.1 Chronic obstructive pulmonary disease with (acute) exacerbation; J10.1 Influenza due to other identified influenza virus with other respiratory manifestations; Z87.891 Personal history of nicotine dependence; I49.1 Atrial premature depolarization; E78.5 Hyperlipidemia, unspecified; R73.9 Hyperglycemia, unspecified; Z99.81 Dependence on supplemental oxygen; Z79.82 Long term (current) use of aspirin
CPT/HCPCS: 36415; 36600; 71010; 80048; 80053; 80202; 81001; 82550; 82553; 82805; 83605; 83735; 83880; 84484; 85025; 85610; 85730; 87040; 87070; 87071; 87086; 87205; 87400; 87493; 93005; 93306; 94640; 94660; 96367; 96376; 97139; 99284; J1200; J1450; J1650; J2543; J2920; J3370; J7030; J7050

== ENCOUNTER → 2018-10-16 | Day surgery (SDC) | payer MEDICARE ==
[2018-10-14 16:26] LABS: BASOPHILS % 0.3 % (0.0-1.0); EOSINOPHILS # (AUTO) 0.2 (0.0-0.4); EOSINOPHILS % 2.5 % (0.0-6.0); HEMATOCRIT 47.4 % (38.2-49.6); HEMOGLOBIN 15.8 g/dL (14.0-18.0); LYMPHOCYTES # (AUTO) 1.7 (1.0-3.2); LYMPHOCYTES % 22.9 % (18.0-39.1); MEAN CORPUSCULAR HEMOGLOBIN 30.4 pg (28-32); MEAN CORPUSCULAR HGB CONC 33.3 g/dL (31-35); MEAN CORPUSCULAR VOLUME 91.3 fL (81-99); MONOCYTES # (AUTO) 0.9 (0.2-0.8); MONOCYTES % 11.6 % (4.4-11.3); NEUTROPHILS # (AUTO) 4.6 (2.1-6.9); NEUTROPHILS % 62.3 % (38.7-80.0); PLATELET COUNT 190 x10e3/uL (140-360); RED BLOOD COUNT 5.19 x10e6/uL (4.3-5.7)
--- NOTE | 2018-10-14 16:43 | Diagnostic Imaging Report ---
Chest, 2 views, 10/14/2018. History: Preop, endoscopy. Comparison: 03/18/2017. Findings: The cardiomediastinal silhouette and pulmonary vasculature are within normal limits. There is minimal biapical pleural thickening. The lungs are hyperinflated. Linear scarring is present in the upper lobe. The lungs are otherwise clear without evidence of consolidation or pleural effusion. Degenerative changes are noted in the thoracic spine. There are no acute osseous or soft tissue abnormalities. Impression: No acute cardiopulmonary abnormality. Emphysematous disease is noted. Signed by: Leobardo Wade on 10/14/2018 4:39 PM
[~2018-10-16] MED LIST changes: +ALPRAZOLAM0.25 MG PO; +Anoro Ellipta IH; +FLUCONAZOLE100 MG PO; +LEVOFLOXACIN500 MG PO; +LORATADINE10 MG PO; +METOPROLOL TART25 MG PO; +MUCINEX DM ER1 EACH PO; +NORVASC5 MG PO; +PREDNISONE20 MG PO; +PREDNISONE5 MG PO; +PROPOFOL IV EMULSION 10 MG/ML 20 ML VIAL ONE; +TESSALON PERLE100 MG PO; +VIBRAMYCIN100 MG PO
--- OUTSIDE RECORDS SUMMARY | 2018-10-16 08:59 | XMS REPORT ---
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 Allergies, Adverse Reactions, Alerts This patient has no known allergies or adverse reactions. Medications This patient has no known medications. Results Test Description Test Time Test Comments Text Results Atomic Results Result Comments CHEST 2 VIEWS 2018-10-14 16:38:00 [place] [address] Patient Name: VALERIE LOREDO MR #: [id number] : 1935 Age/Sex: 82/M Req #: [id number] Adm Physician: Ordered by: OCTAVIO HAGEN MD Report #: [id number] Location: OR Room/Bed: Procedure: [id number] DX/CHEST 2 VIEWS Exam Date: 10/14/18 Exam Time: 1555 REPORT STATUS: Signed Chest, 2 views, 10/14/2018. History: Preop, endoscopy. Comparison: 03/18/2017. Findings: The cardiomediastinal silhouette and pulmonary vasculature are within normal limits. There is minimal biapical pleural thickening. The lungs are hyperinflated. Linear scarring is present in the upper lobe. The lungs are otherwise clear without evidence of consolidation or pleural effusion. Degenerative changes are noted in the thoracic spine. There are no acute osseous or soft tissue abnormalities. Impression: No acute cardiopulmonary abnormality. Emphysematous disease is noted. Signed by: Leobardo Wade on 10/14/2018 4:39 PM Dictated By: LEOBARDO WADE MD 38 Transcribed By: AGNIESZKA on 10/14/181638 COPY TO: OCTAVIO HAGEN MD CHEST SINGLE (PORTABLE) [place] [address] Patient Name: VALERIE LOREDO MR #: [id number] : 1935 Age/Sex: 81/M Req #: [id number] Adm Physician: IVIS ADAME MD Ordered by: RUFUS WARREN MD Report #: [id number] Location: [facility] Room/Bed: [place] [address] Procedure: [id number] DX/CHEST SINGLE (PORTABLE) Exam Date: 03/18/17 Exam Time: 0555 REPORT STATUS: Signed EXAMINATION: CHEST SINGLE (PORTABLE) INDICATION: Pneumonia. COMPARISON: 03/15/2017 FINDINGS: TUBES and LINES: None. LUNGS: The lungs are hyperinflated. Bibasilar atelectasis There is no evidence of pneumonia or pulmonary edema. PLEURA: No pleural effusion or pneumothorax. HEART AND MEDIASTINUM: The cardiomediastinal silhouette is unremarkable. There are atherosclerotic calcifications within the aorta. BONES AND SOFT TISSUES: No acute osseous lesion. Soft tissues are unremarkable. UPPER ABDOMEN: No free air under the diaphragm. IMPRESSION: Changes related to COPD. No evidence of consolidation. Signed by: Dr. Jamir Beckman M.D. on 03/18/2017 6:59 AM Dictated By: JAMIR CASTILLO MD 8 Transcribed By: AGNIESZKA on 03/18/17658 COPY TO: RUFUS WARREN MD CHEST SINGLE (PORTABLE) [place] [address] Patient Name: VALERIE LOREDO MR #: [id number] : 1935 Age/Sex: 81/M Req #: [id number] Adm Physician: Ordered by: SEAN GALLEGOS MD Report #: [id number] Location: ER Room/Bed: Procedure: [id number] DX/CHEST SINGLE (PORTABLE) Exam Date: 03/15/17 Exam Time: 1700 REPORT STATUS: Signed PROCEDURE: A single AP view of the chest. COMPARISON: [facility], DX, CHEST 2 VIEWS, 08/10/2016, 11:46. INDICATIONS: Not provided. FINDINGS: Lines/tubes: None. Lungs: Stable hyperinflated lungs, with increased lucency in the upper lobes, consistent with COPD changes. No consolidation or pulmonary edema. Pleura: Minimal blunting of the right lateral costophrenic sulcus, which may reflect pleural thickening versus small volume pleural effusion. Heart and mediastinum: Stable cardiac silhouette. Enlarged bilateral pulmonary arteries. Atherosclerotic calcification of the aortic arch. Bones: No acute bony abnormality. IMPRESSION: 1. COPD changes. No consolidation or pulmonary edema. 2. Enlarged bilateral pulmonary arteries. 3. Right costoph renic angle pleural thickening versus small pleural effusion. Michael Davis M.D. Dictated by: Michael Davis M.D. on 03/15/2017 at 18:10 Electronically approved by: Michael Davis M.D. on 03/15/2017 at 18:10 Dictated By: MICHAEL DAVIS MD 09 Transcribed By: ANTHONY on 03/15/171809 COPY TO: SEAN GALLEGOS MD
--- OUTSIDE RECORDS SUMMARY | 2018-10-16 08:59 | XMS REPORT | Continuity of Care Document ---
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 Name Role Phone [facility] Unavailable Unavailable Problems Problem Status Onset Date Classification Date Reported Comments Source M25.512 - PAIN IN LEFT SHOULDER Active 06/03/2018 [facility] [place] Medications No Data Provided for This Section Allergies, Adverse Reactions, Alerts No Known Medication Allergies Immunizations No Data Provided for This Section Results No Data Provided for This Section Pathology Reports No Data Provided for This Section Diagnostic Reports Report Value Date Source Shoulder series DX Exam: Left shoulder x-ray, 3 views Reason for Exam: - M25.512 Pain in left shoulder Comparison Exam: None Discussion: No acute bony abnormality seen of the left shoulder. The glenohumeral joint is intact. The acromioclavicular joint and visualized portions of the scapula are unremarkable. No suspicious osteoblastic or osteolytic lesions. The visualized portions of the left rib cage and left lung are unremarkable. Impression: 1. Unremarkable left shoulder xray 06/03/2018 [facility] [place] Consultation Notes No Data Provided for This Section Discharge Summaries No Data Provided for This Section History and Physicals No Data Provided for This Section Vital Signs No Data Provided for This Section Encounters Location Location Details Encounter Type Encounter Number Reason For Visit Attending Provider ADM Date DC Date Status Source [facility] [place] [facility] Di[facility] [id number] Bisi Tavares 06/03/2018 06/04/2018 [facility] [place] Procedures No Data Provided for This Section Assessment and Plan No Data Provided for This Section Plan of Care No Data Provided for This Section Social History Social History Date Source No data available for this section 06/04/2018 [facility] [place] Family History No Data Provided for This Section Advance Directives No Data Provided for This Section Functional Status No Data Provided for This Section
--- OUTSIDE RECORDS SUMMARY | 2018-10-16 08:59 | XMS REPORT | Summary of Care ---
Author Author [facility] [place] Organization [facility] [place] Address Unknown Phone Unavailable Encounter [facility] Encntr_alias(FIN) [id number] Date(s): 06/03/18 - 06/03/18 [facility] [place] [address] [phone] Discharge Disposition: Home or Self Care Attending Physician: Bisi Tavares MD Referring Physician: Bisi Tavares MD Vital Signs No data available for this section Problem List No data available for this section Allergies, Adverse Reactions, Alerts No data available for this section Medications No data available for this section Results No data available for this section Immunizations No data available for this section Procedures No data available for this section Social History No data available for this section Assessment and Plan No data available for this section
[2018-10-16 10:20] VITALS: BP 141/81
== END | disposition home or self-care (01) ==
LOC: OR 08:58
PROVIDERS: ATTEND Internal Medicine Gastroenterology
DX: K29.70 Gastritis, unspecified, without bleeding (principal); K22.2 Esophageal obstruction; K27.9 Peptic ulcer, site unspecified, unspecified as acute or chronic, without hemorrhage or perforation; K44.9 Diaphragmatic hernia without obstruction or gangrene; K21.9 Gastro-esophageal reflux disease without esophagitis; J44.9 Chronic obstructive pulmonary disease, unspecified; I11.0 Hypertensive heart disease with heart failure; I50.9 Heart failure, unspecified; I49.1 Atrial premature depolarization; Z99.81 Dependence on supplemental oxygen; Z01.810 Encounter for preprocedural cardiovascular examination; Z01.812 Encounter for preprocedural laboratory examination; Z01.818 Encounter for other preprocedural examination; Z79.82 Long term (current) use of aspirin; Z91.012 Allergy to eggs; Z87.891 Personal history of nicotine dependence
CPT/HCPCS: 36415; 43239; 71046; 85025; 88305; 88312; 93005